=== PATIENT | female | born 1980 | race Caucasian/White ===

== ENCOUNTER 2020-03-16 12:52 | Emergency (ER) | payer OTHER ==
[2020-03-16] MEDS ORDERED: ORPHENADRINE 30 MG/ML 2 ML VIAL IM STA (13:25)
[2020-03-16] MEDS ORDERED: KETOROLAC 15 MG/ML 1 ML VIAL IM STA (13:25)
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
--- NOTE | 2020-03-16 14:14 | XR ---
Thoracic spine HISTORY: Trauma and pain 3 views of the thoracic spine Thoracic vertebral bodies show preserved height, alignment, and bone mineralization. Disc spaces are maintained. Mild thoracic spondylosis is present. IMPRESSION: No acute fracture or subluxation, follow-up as indicated.
--- NOTE | 2020-03-16 14:16 | XR ---
Lumbar spine HISTORY: Trauma and pain 3 views of the lumbar spine Lumbar vertebral bodies show preserved height, alignment, and bone mineralization. Disc spaces mildly reduced L3-4, there is associated spondylosis. IMPRESSION: No acute fracture or subluxation. Mild degenerative disc changes.
[2020-03-16 14:58] VITALS: BP 141/71; PULSE 77; RESP 17; TEMP 98
== END 2020-03-16 14:57 | disposition home or self-care (01) ==
LOC: EC 12:52
DX: M62.830 Muscle spasm of back (principal); Z88.1 Allergy status to other antibiotic agents; V63.5XXA Driver of heavy transport vehicle injured in collision with car, pick-up truck or van in traffic accident, initial encounter; Y92.410 Unspecified street and highway as the place of occurrence of the external cause; Y99.0 Civilian activity done for income or pay
CPT/HCPCS: 72070; 72100; 99284; 96372; J1885

== ENCOUNTER → 2023-03-08 | Outpatient (CLI) | payer BC, OTHER ==
--- NOTE | 2023-03-09 10:56 | MM ---
Reason for Exam: Screening (asymptomatic). Baseline mammogram. Patient History: Menarche at age 12. First Full-Term at age 26. Premenopausal. Patient has history of breast feeding. Last menstrual period: 03/07/2023 Risk Values: Maia 5 year model risk: 0.8%. NCI Lifetime model risk: 10.8%. Prior Study Comparison: Patient's first Mammogram. Tissue Density: The breast tissue is heterogeneously dense. This may lower the sensitivity of mammography. Findings: Analyzed By CAD. There is no suspicious group of microcalcifications or new suspicious mass in either breast. Overall Assessment: Negative, BI-RAD 1 Management: Screening Mammogram of both breasts in 1 year. . Patient should continue monthly self-breast exams. A clinical breast exam by your physician is recommended on an annual basis. This exam should not preclude additional follow-up of suspicious palpable abnormalities. Note on Maia scores and lifetime risk: 1. A Maia score greater than 3% is considered moderate risk. If this is the case, consider specialist referral to assess eligibility for a risk reducing agent. 2. If overall lifetime risk for the development of breast cancer is 20% or higher, the patient may qualify for future screening with alternating mammogram and breast MRI. Electronically signed and approved by: Garrett Hunt M.D. Radiolog[facility]
== END | disposition home or self-care (01) ==
LOC: RADMAMWWP 08:00
PROVIDERS: ATTEND Family Medicine
DX: Z12.31 Encounter for screening mammogram for malignant neoplasm of breast (principal)
CPT/HCPCS: 77063; 77067